=== PATIENT | female | born 1970 | race Caucasian/White ===

== ENCOUNTER 2017-03-31 21:51 | Emergency (ER) | payer MEDICAID ==
--- NOTE | 2017-03-31 21:56 | ED Physician Chart ---
Chief Complaint/HPI - Patient Information Date Seen:: 03/31/17 Time Seen:: 21:56 Chief Complaint:: foot pain History of Present Illness:: 46-year-old female complains of acute, constant, severe, worse with weightbearing, nonradiating, 9 out of 10, aching, right foot pain located over the base of the fourth and fifth digits. Pain started at about 8 PM when her niece accidentally stepped full weight onto her foot. Patient has associated inability to bear weight on the foot. Denies numbness, tingling, fevers, chest pain, palpitations, nausea or vomiting. Historian:: Patient Review:: Nurse's Note Reviewed Review of Systems - Review of Systems Other: Complete system review otherwise unremarkable except as noted in history of present illness. Past Medical History - Past Medical History Past Medical History: Dyslipidemia, PUD/GERD Family History: None Social History: Non Smoker, No Alcohol, No Drug Use, Surgical History: None Psychiatricy History: None Medication: Reviewed Family Medical History - Family Member Mother Ethnicity: Hx Family Cancer: No Hx Family Coronary Artery Disease: No Hx Family Congestive Heart Failure: No Hx Family Hypertension: Yes Physical Exam - Physical Examination Other:: INITIAL VITAL SIGNS: Reviewed by me GENERAL: Alert and interactive. No acute distress HEAD: Head is normocephalic and atraumatic EYES: EOMI. No scleral icterus. No conjunctival injection ENT: Moist mucous membranes. NECK: Supple. No masses. Full range of motion RESPIRATORY: No tachypnea. Clear breath sounds bilaterally. No wheezing, rales, or rhonchi CV: Regular rate and rhythm. No murmurs, rubs, or gallops ABDOMEN: Soft, non-distended, non-tender. No guarding. No rebound. No masses. EXTREMITIES: No deformity. No cyanosis. No edema. There is pain to palpation over the base of the fourth and fifth digits of the right foot. There is good neurovascular status to the distal right foot. SKIN: Warm and dry. No obvious rashes. NEUROLOGIC: Alert and oriented. Face is symmetric. Speech is normal. Moves all extremities equally. Motor and sensory distally intact. Labs/Radiology/EKG Results - Radiology Results Results: X-ray Foot 3V Interpreted by me: Bones: Nondisplaced fractures to the proximal fourth and fifth phalanges Joints: No dislocation Foreign body: None Assessment Splint Care: Splint applied Post Procedure/Splint Exam: No Active Bleeding, Full Range of Motion, Neuro/ Vascular Exam Comments:: Placed surgical shoe/splint to the right foot to minimize movement and flexion of the toes Splint Assessment: Neurovascularly intact post splint placement with good fit. ED Septic Shock - . Is Septic Shock (SBP<90, OR Lactate>4 mmol\L) present?: No Reassessment (Disposition) - Reassessment Reassessment:: This is a 46-year-old female who suffered a foot injury. X-rays demonstrated fractures, nondisplaced, of the fourth and fifth proximal phalanges on the right foot. There is good neurovascular status to the distal toes. We did place her in a surgical shoe as to minimize flexion and movement of those toes. We've also applied Lars wrap. Gave her shot of Toradol here in the ER. Advised elevation, ice, ibuprofen for pain control. Recommended follow-up with primary care in 1-2 days. Return to ER precautions were given. Patient says she understands and agrees the plan. Reassessment Condition:: Improved - Diagnosis Diagnosis:: Acute right foot pain due to acute right foot, fourth and fifth proximal phalangeal fracture, nondisplaced, first encounter - Aftercare/Follow up Instructions Aftercare/Follow-Up Instructions:: Counseled pt regarding lab results/diagnosis & need follow up, Refer to Discharge Instructions Medication Prescribed:: Ibuprofen - Patient Disposition Discharge/Transfer:: Home Time:: 23:02 Condition at Disposition:: Improved ED Discharge Plan - Patient Disposition Admit/Discharge/Transfer: PT DISCHARGED HOME Condition at Disposition: Improved Instructions: Toe Fracture, [id number] Additional Instructions: FOLLOW UP WITH YOUR DOCTOR IN 2-3 DAYS AND TO COME BACK TO ER IF SYMPTOMS WORSEN.TAKE YOUR MEDICATIONS PRESCRIBED
--- NOTE | 2017-04-01 08:48 | Diagnostic Imaging Report ---
Right foot (3 views) HISTORY: Pain, trauma Exam demonstrates mildly displaced fracture involving the shaft of the fourth proximal phalanx. Cortical irregularity consistent with a nondisplaced fracture also involves the shaft and base of the fifth proximal phalanx. IMPRESSION: 1. Fractures involving the fourth and fifth proximal phalanges
== END 2017-03-31 23:10 | disposition home or self-care (01) ==
LOC: ER 21:51
DX: S92.514A Nondisplaced fracture of proximal phalanx of right lesser toe(s), initial encounter for closed fracture (principal); E78.5 Hyperlipidemia, unspecified; K21.9 Gastro-esophageal reflux disease without esophagitis; X58.XXXA Exposure to other specified factors, initial encounter; Y93.89 Activity, other specified; Y92.89 Other specified places as the place of occurrence of the external cause; Y99.8 Other external cause status
CPT/HCPCS: 99284; 96372; 73630; J1885; Z7502